=== PATIENT | male | born 1980 | race Caucasian/White ===

== ENCOUNTER 2020-07-11 15:06 | Emergency (ER) | payer OTHER, BC ==
--- NOTE | 2020-07-11 16:02 | EDM.PDOC ---
ED HPI GENERAL MEDICAL PROBLEM - General Chief Complaint: Lower Extremity Injury/Pain Stated Complaint: POSSIBLE BROKEN ANKLE Time Seen by Provider: 07/11/20 15:20 Source of Information: Reports: Patient - History of Present Illness INITIAL COMMENTS - FREE TEXT/NARRATIVE: Maynor is a 39 y/o male who comes to the ER today after he slipped on the ice. His right leg and foot went out from under him and landed behind him and when he tried to get up on his right foot, he has excessive pain. He reports that it's very painful to bear weight and the right ankle feels "mushy". He has had a previous foot fracture on the same extremity. Denies any other injuries from the fall. Right Ankle Pain Score (Numeric/FACES): 6 - Related Data Allergies Allergy/AdvReac Type Severity Reaction Status Date / Time No Known Allergies Allergy Verified 07/11/20 15:36 Home Meds: Home Meds Hydrocodone/Acetaminophen [Hydrocodon-Acetaminophen 5-325] 1 - 2 each PO Q6H #30 tablet 07/11/20 [Rx] Ibuprofen 800 mg PO Q8H #90 tablet 07/11/20 [Rx] Losartan [Cozaar] 25 mg PO DAILY 07/11/20 [History] atorvaSTATin [Lipitor] 10 mg PO BEDTIME 07/11/20 [History] metFORMIN [Glucophage XR] 500 mg PO BIDMEALS 07/11/20 [History] Past Medical History Cardiovascular History: Reports: High Cholesterol, Hypertension Social & Family History - Tobacco Use Tobacco Use Status *Q: Current Some Day Tobacco User Years of Tobacco use: 10 Packs/Tins Daily: 0.2 Review of Systems - Review of Systems Review Of Systems: See Below Constitutional: Reports: No Symptoms Eyes: Reports: No Symptoms Ears: Reports: No Symptoms Nose: Reports: No Symptoms Mouth/Throat: Reports: No Symptoms Respiratory: Reports: No Symptoms Cardiovascular: Reports: No Symptoms GI/Abdominal: Reports: No Symptoms Genitourinary: Reports: No Symptoms Musculoskeletal: Reports: Joint Pain (right ankle) Skin: Reports: No Symptoms Neurological: Reports: No Symptoms Psychiatric: Reports: No Symptoms ED EXAM, GENERAL - Physical Exam Exam: See Below General Appearance: Alert, WD/WN, No Apparent Distress, Other (Sitting in whe elchair with his right leg elevated.) Ears: Hearing Grossly Normal Head: Atraumatic, Normocephalic Respiratory/Chest: No Respiratory Distress Cardiovascular: Regular Rate, Rhythm GI/Abdominal: Soft (Male) Exam: Deferred Rectal (Males) Exam: Deferred Extremities: Other (Note swelling and tenderness to bilateral right ankle region, mild edema noted in right foot and lower leg. No brusing. ROM is painful when attempted.) Neurological: Alert, Oriented, CN II-XII Intact Psychiatric: Normal Affect, Normal Mood Skin Exam: Warm, Dry, Intact, Normal Color Lymphatic: No Adenopathy Course - Vital Signs Text/Narrative:: 1520 The patient was seen by the WORKFORCE PLANNING ANALYST. Xray ordered. He declined need for pain meds at this time. 1605 Xray reviewed, note bimalleolar fracture, will await final radiology reading prior to proceeding.\\ 1700 Xrays sent to [place] and [facility] contacted. Case discussed with Dr Dominguez, Trauma Ortho manager construction. Dr Dominguez advised splint ad follow up next week in clinic for ORIF. Discussed with patient. Having more pain now. Morphine 1mg IM and Ondanestron 4mg po given. 1720 Posterior/Stirrup type splint applied to right lower extremity. Patient tolerated well. Patient was given discharge instructions and left the ER in stable condition after written instructions were given. Last Recorded V/S: Last Vital Signs Temp 37.2 C 07/11/20 15:15 Pulse 90 07/11/20 15:15 Resp 18 07/11/20 15:15 BP 158/87 H 07/11/20 15:15 Pulse Ox 95 07/11/20 15:15 - Orders/Labs/Meds Meds: Medications Discontinued Medications Generic Name Dose Route Start Last Admin Trade Name Edwardq PRN Reason Stop Dose Admin Morphine Sulfate 4 mg 07/11/20 16:12 07/11/20 16:42 Morphine IM 07/11/20 16:13 4 mg ONETIME ONE Administration Ondansetron HCl 4 mg 07/11/20 16:12 07/11/20 16:42 Zofran Odt PO 07/11/20 16:13 4 mg ONETIME ONE Administration - Radiology Interpretation Free Text/Narrative:: XR Right Ankle 3V=note trimalleolar fracture, mortise unstable, see final radiology read. Departure - Departure Time of Disposition: 17:16 Disposition: Home, Self-Care 01 Condition: Good Clinical Impression: Trimalleolar fracture of right ankle Qualifiers: Encounter type: initial encounter Fracture type: closed Qualified Code(s): S82.851A - Displaced trimalleolar fracture of right lower leg, initial encounter for closed fracture - Discharge Information *PRESCRIPTION DRUG MONITORING PROGRAM REVIEWED*: No *COPY OF PRESCRIPTION DRUG MONITORING REPORT IN PATIENT TOVA: No Prescriptions: Hydrocodone/Acetaminophen [Hydrocodon-Acetaminophen 5-325] 1 - 2 each PO Q6H #30 tablet Ibuprofen 800 mg PO Q8H #90 tablet Instructions: Crutch Use, Adult, [id number], Displaced Trimalleolar Ankle Fracture Treated With ORIF Referrals: PCP,Unknown [Primary Care Provider] - Forms: ED Department Discharge Sepsis Event Note (ED) - Evaluation Sepsis Screening Result: No Definite Risk - Focused Exam Vital Signs: Vital Signs Temp Pulse Resp BP Pulse Ox 07/11/20 15:15 37.2 C 90 18 158/87 H 95 - Assessment/Plan Assessment:: 1)Right Trimalleolar Fracture with Instability noted 2)Fall on Ice Plan: -Ibuprofen 800mg oral every 8 hours as needed #90(Rx) -Hydrocodone/APAP 5/325mg 1-2 tablets every 4-6 hours as needed for pain #30 (Rx) -Keep splint on and elevate extremity as much as possible -Use crutches as instructed -Apply ice as able -Call [facility] to set up an appt in [address] that Dr Dominguez advised he be seen by Dr Heaton's service. [facility] -Return to the ER if you have any further concerns
--- NOTE | 2020-07-11 16:40 | CR ---
[id number] RAD/RAD Ankle Right 3V Min Exam: RAD Ankle Right 3V Min Indication:SLIPPED ON ICE, PAIN WITH WEIGHT BEARING TO RIGHT ANKLE Comparison: No prior imaging for comparison. Discussion: Acute fractures of the distal tibia and fibula. Fibular fracture is comminuted with both transverse and oblique components involving the metaphysis extending to near the physeal scar. Fracture lines extend into the distal tibiofibular syndesmosis and ankle mortise. Fracture of the medial malleolus at its base. There is up to 5 mm of separation at the fracture site. Lateral view demonstrates what appears to be a nondisplaced fracture of the posterior malleolus in addition to capsular avulsion fracture along the dorsal talus. Findings result in instability of the ankle mortise with widening along its anterior aspect. Soft tissue swelling throughout the lower leg and ankle. Impression: Acute trimalleolar fracture of the ankle mortise resulting in ankle mortise instability, described above. Emil Rosen MD 07/11/20 0436 Thank you for allowing us to participate in the care of your patient.
[2020-07-11] MEDS: Ondansetron 4 MG Tab.DIS PO ONE (16:42)
[2020-07-11] MEDS: Morphine 4 MG/ML Syringe IM ONE (16:42)
== END 2020-07-11 17:28 | disposition home or self-care (01) ==
LOC: VM.ED 15:06
DX: S82.851A Displaced trimalleolar fracture of right lower leg, initial encounter for closed fracture (principal); R60.0 Localized edema; I10 Essential (primary) hypertension; E78.00 Pure hypercholesterolemia, unspecified; F17.210 Nicotine dependence, cigarettes, uncomplicated; Z79.899 Other long term (current) drug therapy; W00.0XXA Fall on same level due to ice and snow, initial encounter
CPT/HCPCS: 29515; 73610-RT; 96372; 99283; 99283-25; A9270-GY; J2270